=== PATIENT | female | born 1930 | race Two or more races ===

== ENCOUNTER 2017-09-21 18:40 | Inpatient (IN) | payer OTHER ==
[~2017-09-21] VITALS: Ht 170.2 cm; Wt 117.9 kg
[2017-09-21] MEDS ORDERED: CARVEDILOL25 MG (19:38)
[2017-09-21] MEDS ORDERED: CLOPIDOGREL BIS75 MG (19:39)
[2017-09-21] MEDS ORDERED: FUROSEMIDE40 MG (19:39)
[2017-09-21] MEDS ORDERED: AVAPRO150 MG (19:40)
[2017-09-21] MEDS ORDERED: JANUMET 50-1,01 EACH (19:40)
[2017-09-21] MEDS ORDERED: ADVAIR HFA 230/12 GM (19:42)
[2017-10-03] MEDS ORDERED: CLOPIDOGREL BIS75 MG PO (15:38)
== END 2017-10-03 20:31 | disposition home or self-care (01) | DRG 872 ==
LOC: ER 18:40 → MEDI 09-22 09:55 → ICU-2 09-22 09:55 → MEDJ 09-27 08:53
PROC: 4A033R1 Measurement of Arterial Saturation, Peripheral, Percutaneous Approach (ICD-10-PCS; principal; 2017-09-22)
PROC: B246ZZZ Ultrasonography of Right and Left Heart (ICD-10-PCS; 2017-09-22)
PROC: B345ZZZ Ultrasonography of Bilateral Common Carotid Arteries (ICD-10-PCS; 2017-09-22)
PROC: B348ZZZ Ultrasonography of Bilateral Internal Carotid Arteries (ICD-10-PCS; 2017-09-22)
PROC: BB24ZZZ Computerized Tomography (CT Scan) of Bilateral Lungs (ICD-10-PCS; 2017-09-22)
PROC: 8E0ZXY6 Isolation (ICD-10-PCS; 2017-09-22)
PROC: 02HV33Z Insertion of Infusion Device into Superior Vena Cava, Percutaneous Approach (ICD-10-PCS; 2017-09-27)
PROC: 4A12X4Z Monitoring of Cardiac Electrical Activity, External Approach (ICD-10-PCS; 2017-09-27)
DX: A41.9 Sepsis, unspecified organism (principal); N17.8 Other acute kidney failure; N39.0 Urinary tract infection, site not specified; B37.49 Other urogenital candidiasis; I50.30 Unspecified diastolic (congestive) heart failure; R55 Syncope and collapse; Z74.01 Bed confinement status; E11.9 Type 2 diabetes mellitus without complications; I11.0 Hypertensive heart disease with heart failure; J09.X2 Influenza due to identified novel influenza A virus with other respiratory manifestations; B96.29 Other Escherichia coli [E. coli] as the cause of diseases classified elsewhere; L89.152 Pressure ulcer of sacral region, stage 2; Z78.1 Physical restraint status

== ENCOUNTER → 2017-10-11 | Emergency (ER) | payer OTHER ==
[~2017-10-11] VITALS: Ht 165.1 cm; Wt 127.0 kg
[~2017-10-11] MED LIST: ADVAIR HFA 230/12 GM; AVAPRO150 MG; CARVEDILOL25 MG; CLOPIDOGREL BIS75 MG; CLOPIDOGREL BIS75 MG PO; FUROSEMIDE40 MG; JANUMET 50-1,01 EACH
== END | disposition expired ==
LOC: ER 17:40
DX: R40.2442 Other coma, without documented Glasgow coma scale score, or with partial score reported, at arrival to emergency department (principal); R57.8 Other shock; R00.1 Bradycardia, unspecified; R06.89 Other abnormalities of breathing